=== PATIENT | female | born 1970 | race Caucasian/White ===

== ENCOUNTER 2021-10-11 12:21 | Emergency (ER) | payer OTHER ==
[~2021-10-11] VITALS: Ht 175.3 cm; Wt 81.7 kg
[2021-10-11] MEDS ORDERED: EUTHYROX125 MCG PO (18:17)
[2021-10-11] MEDS ORDERED: AMOCLA875 PO (18:17)
== END 2021-10-11 18:29 | disposition home or self-care (01) ==
LOC: ER 12:21
DX: T74.11XA Adult physical abuse, confirmed, initial encounter (principal); K08.89 Other specified disorders of teeth and supporting structures; E03.9 Hypothyroidism, unspecified
CPT/HCPCS: 99283

== ENCOUNTER 2022-03-22 15:52 | Emergency (ER) | payer MEDICAID ==
[~2022-03-22] VITALS: Ht 175.3 cm; Wt 72.6 kg
[~2022-03-22 15:52] MED LIST: AMOCLA875 PO; EUTHYROX125 MCG PO
[2022-03-22] MEDS ORDERED: EUTHYROX125 MCG PO (20:25)
[2022-03-22] MEDS ORDERED: IBUP600 PO (20:25)
== END 2022-03-22 20:46 | disposition home or self-care (01) ==
LOC: ER 15:52
DX: S93.401A Sprain of unspecified ligament of right ankle, initial encounter (principal); X50.1XXA Overexertion from prolonged static or awkward postures, initial encounter; R51.9 Headache, unspecified; E03.9 Hypothyroidism, unspecified
CPT/HCPCS: 73610; J1885; J2550

== ENCOUNTER 2023-04-07 11:49 | Emergency (ER) | payer OTHER ==
[~2023-04-07] VITALS: Ht 175.3 cm; Wt 81.7 kg
[~2023-04-07 11:49] MED LIST changes: +IBUP600 PO
[2023-04-07 11:57] VITALS: BP 145/98
[2023-04-07] MEDS ORDERED: EUTHYROX125 MCG PO ×2 (12:35→12:39)
== END 2023-04-07 12:53 | disposition home or self-care (01) ==
LOC: ER 11:49
DX: Z76.0 Encounter for issue of repeat prescription (principal); Z79.890 Hormone replacement therapy
CPT/HCPCS: 99281